=== PATIENT | male | born 1960 | race Caucasian/White ===

== ENCOUNTER 2020-01-18 08:50 | Inpatient (IN) ==
[2020-01-18 10:00] LABS: Basophils # (auto) 0.03 K/uL (0-0.2); Basophils % (auto) 0.4 %; Eosinophils # (auto) 0.05 K/uL (0-0.5); Eosinophils % (auto) 0.6 %; Hematocrit (blood only) 41.8 % (42-52); Hemoglobin 14.2 g/dL (14.0-18.0); Immature Granulocytes # (auto) 0.03 K/uL (0.00-0.02); Immature Granulocytes % (auto) 0.4 %; Lymphocytes # (auto) 1.96 K/uL (1.2-3.4); Lymphocytes % (auto) 23.6 %; Mean Corpuscular Volume 120.8 fL (80-100); Mean Platelet Volume 10.6 fL (7.4-10.4); Monocytes # (auto) 1.09 K/uL (0.11-0.59); Monocytes % (auto) 13.1 %; Neutrophils # (auto) 5.14 K/uL (1.4-6.5); Neutrophils % (auto) 61.9 %; Platelet Count 146 K/uL (130-400); RDW Coefficient of Variation 14.2 % (11.5-14.5); RDW Standard Deviation 62.5 fL (36.4-46.3); Red Blood Count 3.46 M/uL (4.7-6.1)
--- NOTE | 2020-01-18 10:03 | XRay Report ---
XR chest 1V portable CLINICAL HISTORY: Shortness of breath. COMPARISON STUDY: Chest radiograph December 11, 2012. FINDINGS: Lung volumes are diminished. There is moderate elevation of the right hemidiaphragm. Suspec mary ellen small bilateral pleural effusions are noted. Right basilar opacity is noted. Cardiac size is norm al. There is a possible hiatal hernia. There is no evidence for pulmonary edema. There is no pneumoth orax. IMPRESSION: 1. Low lung volumes with right basilar opacity that may reflect consolidation or atelectasis. Radiogr aphic follow up is recommended. 2. Suspected small bilateral pleural effusions. 3. Elevation of the right hemidiaphragm. ACT 112: Negative or not required by law. Electronically signed by: Raphael Arias M.D. 01/18/2020 10:02 AM
[2020-01-18 10:14] LABS: INR 1.7 (0.9-1.1); Partial Thromboplastin Ratio 1.2; Partial Thromboplastin Time 33.5 Seconds (21.0-31.0); Prothrombin Time 17.2 Seconds (9.0-12.0)
--- NOTE | 2020-01-18 10:22 | CT Scan Report ---
CT SCAN OF THE ABDOMEN AND PELVIS WITHOUT CONTRAST CLINICAL HISTORY: abd pain, ascites COMPARISON STUDY: 12/11/2012 TECHNIQUE: CT scan of the abdomen and pelvis was performed from the lung bases to the proximal femurs . Images are reviewed in the axial, sagittal, and coronal planes. IV contrast was not administered fo r this examination. A dose lowering technique was utilized adhering to the principles of ALARA. CT DOSE: 607.86 mGy.cm FINDINGS: Lower chest: There are bibasilar airspace opacities with air bronchograms. While likely atelectatic, a pneumonia could appear similar Liver: There is severe hepatic steatosis. No discrete masses are visualized on this noncontrast exami nation. Gallbladder: Cholelithiasis Spleen: Top normal in size Pancreas: Unremarkable. Adrenal glands: Unremarkable. Kidneys: No renal, ureteral, or bladder calculi are visualized Bowel: There are no transition zones to indicate bowel obstruction. There is colonic diverticulosis. There is no convincing evidence of acute diverticulitis. The appendix appears normal as visualized. Peritoneum: There is moderate ascites. Vasculature: The abdominal aorta is normal in course and caliber. There is prominent mesenteric and o mental vascularity. Adenopathy: None. Pelvic viscera: There is mild prostatomegaly Skeletal structures: There is a superior endplate L3 deformity which appears old IMPRESSION: 1. Severe hepatic steatosis 2. Cholelithiasis 3. Moderate ascites 4. No evidence of bowel obstruction. No evidence of free air 5. No renal, ureteral, or bladder calculi identified 6. No evidence of acute appendicitis. No evidence of acute diverticulitis 7. Bilateral lower lung zone opacities, atelectasis favored over pneumonia ACT 112: Negative or not required by law. Electronically signed by: Ashish Bolanos M.D. 01/18/2020 10:20 AM
[2020-01-18 10:25] LABS: Macrocytosis Present; Polychromasia 1+
[2020-01-18 10:30] LABS: Albumin Globulin Ratio 0.3 (0.9-2); Albumin Level 1.9 gm/dl (3.4-5.0); BUN Creatinine Ratio 7.6 (10-20); Bilirubin,Total 3.2 mg/dl (0.2-1); Calcium 8.3 mg/dl (8.5-10.1); Creatinine Clr Calc Pharmacy 104.6 ml/min; Est GFR (African American) 115.9; Globulin 6.6 gm/dl (2.5-4.0); Potassium 4.2 mmol/L (3.5-5.1); Total Protein 8.5 gm/dl (6.4-8.2)
--- NOTE | 2020-01-18 10:34 | Emergency Department Note ---
Impression & Plan Abdominal pain, Abdominal ascites, Alcoholic cirrhosis, Hyperbilirubinemia ED Provider Note NAME: MATTHEW VASUQEZ AGE: 59 SEX: M : 1960 ARRIVES VIA: Walk-In INFORMANT: Patient, ED PROVIDER(S): Jonathan Calderón DO CHIEF COMPLAINT: Abdominal pain HPI: The patient is a 59-year-old male who has a history of chronic alcoholism who continues to drink alcohol who presented to the emergency department for an evaluation of abdominal pain. The patient is noticed over the last month that he is had worsening abdominal distention. The patient does have a history of alcoholism as well as some liver insufficiency at baseline. The patient has a visiting nurse who came to see him today for his symptoms. At that time he was advised to go directly to the emergency department. They did make contact with his primary care physician. The patient's GI doctor as well as primary care physician on [place] but the patient came to [facility]. He denies having any fever or chills. He has had no recent falls. He is never had a paracentesis before. He does continue to drink alcohol. ROS: See above HPI for pertinent positives & negatives. A total of 10 systems reviewed and were otherwise negative. PAST MEDICAL HISTORY: See Below PAST SURGICAL HISTORY: See Below FAMILY HISTORY: See Below SOCIAL HISTORY: See Below HOME MEDICATIONS: See Below ALLERGIES: See Below VITALS: See Below PHYSICAL EXAMINATION: GENERAL: Patient is awake alert in no acute distress patient is resting comfortably and showing no signs of anxiety EYES: The conjunctivae are pale. The pupils are round and reactive. EARS, NOSE, MOUTH AND THROAT: The nose is without any evidence of any deformity. Mucous membranes are moist. Tongue is midline. NECK: The neck is nontender and supple. RESPIRATORY: Shallow respirations were noted. There were rales at both bases. CARDIOVASCULAR: Regular rate and rhythm noted there no murmurs rubs or gallops normal S1 normal S2. GASTROINTESTINAL: The abdomen is moderately distended and diffusely tender. There is right upper quadrant tenderness to palpation. MUSCULOSKELETAL/EXTREMITIES: There is no evidence of gross deformity full range of motion is noted in the hips and shoulders. SKIN: There is no obvious evidence of any rash. Pedal edema was noted bilater ally. NEUROLOGIC: Patient is awake alert and oriented x3. MEDICAL DECISION MAKING: The patient is a 59-year-old male who presented to the emergency department for an evaluation of abdominal pain. The patient is a history of alcoholic cirrhosis. He continues to drink alcohol. It sounds as though he has started to develop ascites recently which is worsening over the last few days. The patient is having significant difficulty breathing. I discussed the patient's laboratory and radiographic studies with him. I also discussed his case with gastroenterology. At this time they would recommend that we keep the patient in the emergency department for further work-up as well as possible paracentesis to ensure that this is not an infection in the ascites. I discussed this plan with the patient he was agreeable. I also discussed his case with the on-call [facility] hospitalist group. They have agreed to evaluate the patient in the emergency department for further management and disposition. Triage Nursing notes reviewed. Prior medical records reviewed Vital Signs: reviewed and remarkable for tachycardia. Differential diagnosis: Etiologies such as appendicitis, diverticulitis, obstruction, inflammatory bowel disease, renal colic, PUD, biliary pathology, pancreatitis, mesenteric ischemia, aortic pathology, infections, genitourinary, UTI, perforated viscus, as well as others were entertained. ER treatment provided: See below Diagnostics interpreted by me: ECG: none Cardiac Monitoring: An order was placed for continuous cardiac monitoring. The monitor shows a rate of 98 with sinus rhythm. Laboratory studies: As stated above and show below. Imaging studies: See below Consultation(s): 1130: I discussed this case with Paige who is covering for the GI group. They will evaluate the patient for further management and disposition. 1200: I discussed this case with Dr. Ramírez. She will evaluate the patient in the emergency department for further management and disposition. Past Med/Surg History Family History (Updated 01/18/20 @ 16:23 by Solitario Garg MD) Mother Ovarian cancer Father Prostate cancer Brother Cancer Brother Bladder cancer Social History (Updated 01/18/20 @ 16:20 by Solitario Garg MD) Smoking Status: Never smoker Hx Alcohol Use: Yes Alcohol Intake Frequency: 4 or More x per/Week Hx Substance Use: Yes Prescribed Medications: Marijuana Prescribed Medications Comment: 1-2 puffs a day for chronic pain Preferred Language: Mohawk Visual Impairment: No Limitations Hearing Ability: Normal Current Living Situation: Alone current occupational status: disabled How many Children do You have: 0 Feels Safe at Home: Yes Allergies Allergies Allergy/AdvReac Type Severity Reaction Status Date / Time No Known Allergies Allergy Unknown Verified 01/18/20 10:10 Home Meds Home Medications Medication Instructions Recorded Confirmed colchicine 0.5 mg PO DIRECTED 01/18/20 01/18/20 rifaximin [Xifaxan] 550 mg PO BID 01/18/20 01/18/20 Results & Data (ED) Vital Signs Vital Signs - 24 hr 01/18/20 09:10 01/18/20 09:40 01/18/20 10:24 Temperature 36.9 C Temperature Source Oral Pulse Rate 101 H 98 H Pulse Rate [Apical] 96 H Pulse Rate from SpO2 Sensor 99 H Pulse Rhythm Regular Pulse Strength Normal Respiratory Rate 22 24 26 H Respiratory Effort / Characteristics Non-Labored Spontaneous Spontaneous Short of Breath Respiratory Depth Normal Normal Respiratory Pattern Regular Regular Blood Pressure 162/100 H 137/94 Blood Pressure [Left Arm] 138/94 Blood Pressure Mean 120 105 Blood Pressure Mean [Left Arm] 108 Blood Pressure Position Sitting Blood Pressure Position [Left Arm] Lying Pulse Oximetry 93 95 95 Oxygen Delivery Method Room Air Room Air Sepsis Recent Fever Within 48 Hours No Sepsis New/Unexplained Change in Mental Status No Sepsis Action Taken by Nursing No Action Required 01/18/20 10:30 01/18/20 11:00 01/18/20 11:30 Temperature Temperature Source Pulse Rate 98 H 98 H 98 H Pulse Rate [Apical] Pulse Rate from SpO2 Sensor 99 H 98 H 99 H Pulse Rhythm Pulse Strength Respiratory Rate 22 24 20 Respiratory Effort / Characteristics Respiratory Depth Respiratory Pattern Blood Pressure 120/93 122/87 134/80 Blood Pressure [Left Arm] Blood Pressure Mean 102 106 99 Blood Pressure Mean [Left Arm] Blood Pressure Position Blood Pressure Position [Left Arm] Pulse Oximetry 95 95 94 Oxygen Delivery Method Sepsis Recent Fever Within 48 Hours Sepsis New/Unexplained Change in Mental Status Sepsis Action Taken by Nursing 01/18/20 12:00 01/18/20 12:30 01/18/20 13:00 Temperature Temperature Source Pulse Rate 98 H 95 H 98 H Pulse Rate [Apical] Pulse Rate from SpO2 Sensor 98 H 96 H 98 H Pulse Rhythm Pulse Strength Respiratory Rate 21 24 22 Respiratory Effort / Characteristics Respiratory Depth Respiratory Pattern Blood Pressure 136/96 136/85 138/88 Blood Pressure [Left Arm] Blood Pressure Mean 118 96 105 Blood Pressure Mean [Left Arm] Blood Pressure Position Blood Pressure Position [Left Arm] Pulse Oximetry 93 93 93 Oxygen Delivery Method Sepsis Recent Fever Within 48 Hours Sepsis New/Unexplained Change in Mental Status Sepsis Action Taken by Nursing 01/18/20 13:30 01/18/20 14:00 01/18/20 14:30 Temperature Temperature Source Pulse Rate 98 H 100 H 98 H Pulse Rate [Apical] Pulse Rate from SpO2 Sensor 98 H 98 H 98 H Pulse Rhythm Pulse Strength Respiratory Rate 20 21 28 H Respiratory Effort / Characteristics Respiratory Depth Respiratory Pattern Blood Pressure 133/84 117/94 137/81 Blood Pressure [Left Arm] Blood Pressure Mean 97 102 95 Blood Pressure Mean [Left Arm] Blood Pressure Position Blood Pressure Position [Left Arm] Pulse Oximetry 93 95 95 Oxygen Delivery Method Sepsis Recent Fever Within 48 Hours Sepsis New/Unexplained Change in Mental Status Sepsis Action Taken by Nursing 01/18/20 15:00 Temperature Temperature Source Pulse Rate 97 H Pulse Rate [Apical] Pulse Rate from SpO2 Sensor 97 H Pulse Rhythm Pulse Strength Respiratory Rate 24 Respiratory Effort / Characteristics Respiratory Depth Respiratory Pattern Blood Pressure 151/90 H Blood Pressure [Left Arm] Blood Pressure Mean 109 Blood Pressure Mean [Left Arm] Blood Pressure Position Blood Pressure Position [Left Arm] Pulse Oximetry 94 Oxygen Delivery Method Sepsis Recent Fever Within 48 Hours Sepsis New/Unexplained Change in Mental Status Sepsis Action Taken by Custodial Medications Current Medication List: was personally reviewed by me Laboratory Data Attestation: I reviewed the patient's lab results. Result diagrams: 01/18/20 09:45 01/18/20 09:45 Lab Results 01/18/20 01/18/20 01/18/20 Range/Units 09:45 09:45 09:45 WBC 8.30 (4.8-10.8) K/uL RBC 3.46 L (4.7-6.1) M/uL Hgb 14.2 (14.0-18.0) g/dL Hct 41.8 L (42-52) % MCV 120.8 H (80-100) fL MCH 41.0 H (25-34) pg MCHC 34.0 (32-36) g/dL RDW Std Deviation 62.5 H (36.4-46.3) fL RDW Coeff of Ty 14.2 (11.5-14.5) % Plt Count 146 (130-400) K/uL MPV 10.6 H (7.4-10.4) fL Immature Gran % (Auto) 0.4 % Neut % (Auto) 61.9 % Lymph % (Auto) 23.6 % [place] % (Auto) 13.1 % Eos % (Auto) 0.6 % Baso % (Auto) 0.4 % Neut # (Auto) 5.14 (1.4-6.5) K/uL Lymph # (Auto) 1.96 (1.2-3.4) K/uL [place] # (Auto) 1.09 H (0.11-0.59) K/uL Eos # (Auto) 0.05 (0-0.5) K/uL Baso # (Auto) 0.03 (0-0.2) K/uL Immature Gran # (Auto) 0.03 H (0.00-0.02) K/uL Polychromasia 1+ Macrocytosis Present PT 17.2 H (9.0-12.0) Seconds INR 1.7 H (0.9-1.1) APTT 33.5 H (21.0-31.0) Seconds PTT Ratio 1.2 Sodium 134 L (136-145) mmol/L Potassium 4.2 (3.5-5.1) mmol/L Chloride 101 (98-107) mmol/L Carbon Dioxide 25 (21-32) mmol/L Anion Gap 8.0 (3-11) BUN 6 L (7-18) mg/dl Creatinine 0.77 (0.6-1.4) mg/dl Est Cr Clr Drug Dosing 104.6 ml/min Est GFR ( Amer) 115.9 Est GFR (Non-Af Amer) 100.0 BUN/Creatinine Ratio 7.6 L (10-20) Glucose 102 H (70-99) mg/dl Calcium 8.3 L (8.5-10.1) mg/dl Total Bilirubin 3.2 H (0.2-1) mg/dl Direct Bilirubin (0-0.2) mg/dl AST 115 H (15-37) U/L ALT 34 (12-78) U/L Alkaline Phosphatase 131 H (45-117) U/L Total Protein 8.5 H (6.4-8.2) gm/dl Albumin 1.9 L (3.4-5.0) gm/dl Globulin 6.6 H (2.5-4.0) gm/dl Albumin/Globulin Ratio 0.3 L (0.9-2) Lipase 122 (73-393) U/L Specimen Hemolysis Imaging Data Radiologist's Impression: XR chest 1V portable CLINICAL HISTORY: Shortness of breath. COMPARISON STUDY: Chest radiograph December 11, 2012. FINDINGS: Lung volumes are diminished. There is moderate elevation of the right hemidiaphragm. Suspected small bilateral pleural effusions are noted. Right basilar opacity is noted. Cardiac size is normal. There is a possible hiatal hernia. There is no evidence for pulmonary edema. There is no pneumothorax. IMPRESSION: 1. Low lung volumes with right basilar opacity that may reflect consolidation or atelectasis. Radiographic follow up is recommended. 2. Suspected small bilateral pleural effusions. 3. Elevation of the right hemidiaphragm. ACT 112: Negative or not required by law. Electronically signed by: Raphael Arias M.D. 01/18/2020 10:02 AM Dictated: 01/18/20 1000 Transcribed: 01/18/[address] SCAN OF THE ABDOMEN AND PELVIS WITHOUT CONTRAST CLINICAL HISTORY: abd pain, ascites COMPARISON STUDY: 12/11/2012 TECHNIQUE: CT scan of the abdomen and pelvis was performed from the lung bases to the proximal femurs. Images are reviewed in the axial, sagittal, and coronal planes. IV contrast was not administered for this examination. A dose lowering technique was utilized adhering to the principles of ALARA. CT DOSE: 607.86 mGy.cm FINDINGS: Lower chest: There are bibasilar airspace opacities with air bronchograms. While likely atelectatic, a pneumonia could appear similar Liver: There is severe hepatic steatosis. No discrete masses are visualized on this noncontrast examination. Gallbladder: Cholelithiasis Spleen: Top normal in size Pancreas: Unremarkable. Adrenal glands: Unremarkable. Kidneys: No renal, ureteral, or bladder calculi are visualized Bowel: There are no transition zones to indicate bowel obstruction. There is colonic diverticulosis. There is no convincing evidence of acute diverticulitis. The appendix appears normal as visualized. Peritoneum: There is moderate ascites. Vasculature: The abdominal aorta is normal in course and caliber. There is prominent mesenteric and omental vascularity. Adenopathy: None. Pelvic viscera: There is mild prostatomegaly Skeletal structures: There is a superior endplate L3 deformity which appears old IMPRESSION: 1. Severe hepatic steatosis 2. Cholelithiasis 3. Moderate ascites 4. No evidence of bowel obstruction. No evidence of free air 5. No renal, ureteral, or bladder calculi identified 6. No evidence of acute appendicitis. No evidence of acute diverticulitis 7. Bilateral lower lung zone opacities, atelectasis favored over pneumonia ACT 112: Negative or not required by law. Electronically signed by: Ashish Bolanos M.D. 01/18/2020 10:20 AM Dictated: 01/18/20 1014 Transcribed: 01/18/20 1014 Blood Pressure Blood Pressure Findings: Normal blood pressure Discharge Plan Visit Data Chief Complaint: Abdominal Pain Stated Complaint: END STAGE LIVER DISEASE,PAIN IN ABD AND BACK ED Provider: Jonathan Calderón Discharge Problem: Abdominal pain, Abdominal ascites, Alcoholic cirrhosis, Hyperbilirubinemia Patient Disposition: Being Evaluated by Hospitalist Condition: Good Forms Stand Alone Forms: [employer] Prescriptions Prescriptions: No Action colchicine 0.6 mg tablet 0.5 mg PO DIRECTED RF: 0 Xifaxan 550 mg tablet 550 mg PO BID RF: 0 Referrals Referrals: PCP,NO [Primary Care Provider] - Discharge Problem: Abdominal pain Qualifiers: Abdominal location: right upper quadrant Qualified Code(s): R10.11 - Right upper quadrant pain Abdominal ascites Qualifiers: Ascites type: due to alcoholic cirrhosis Qualified Code(s): K70.31 - Alcoholic cirrhosis of liver with ascites Alcoholic cirrhosis Qualifiers: Ascites presence: with ascites Qualified Code(s): K70.31 - Alcoholic cirrhosis of liver with ascites
--- NOTE | 2020-01-18 14:30 | History & Physical Report ---
Date of Service January 18, 2020 Assessment & Plan (1) Abdominal ascites: Frantz Mayer is a 59 year old male w/ history of alcohol use disorder and alcoholic fatty liver (possibly cirrhosis) and a year of worsening ascites who presents with a month of increased abdominal pain and significant increase in the size of his abdomen. Abdominal Pain with ascites CT abd pelv w/o contrast showed severe hepatic steatosis, cholelithiasis, moderate ascites, no evidence of bowel obstruction, no evidence of free air -? sec to worsening ascites/SBP - spoke to radiology - to get diagnostic/therapeutic paracentesis Ascites likely secondary to alcoholic hepatosteatosis with acute alcoholic hepat itis -AST elevation and AST/ALT ratio consistent with alcoholic hapatitis -child estrada 12 points, class C. MELD score 20 -Maddrey Discriminate Function (MDF) score <32, so will not treat with glucocort icoids at this time -AM labs: CBC, CMP, PT, PTT, INR, ammonia Episodes of visual hallucinations -2 episodes of visual hallucinations in the past 2 months may point towards encephalopathy, but may also be due to other causes such as psych history (pt has had history of bipolar I and psych admission for SI in past) -hx elevated ammonia. followed by GI every 3 months. pcp every 6 months. started taking rifaximin 550 bid since 2 months ago plan: 3. alcohol use disorder with hx tremors -last drink (7 oz vodka last 2 months, pint+ a day vodka previously)) was yesterday, 16 hours ago. -At this time, no plans for use of gabapentin or Librium given that patient appears clinically mentally well. Dyspnea in setting of raised R hemidiaphragm, likely from combination of ascites and hepatomegaly, so will be cautious about sedation depressing respiratory drive. plan: -AWSS assessments -PRN Ativan per protocol. -high dose thiamine -check folate, B12 4. gout -stable, in remission plan: -hold colchicine 5. hyperlipidemia -patient has not taken medications for years -not addressed this visit 6. hx of bipolar disorder -hasn't been on medication for a few years. -not addressed acutely this visit 7. DVT prophylaxis -not using CHRISTA because of ascites plan: -SCDs Code status: full FENGI: patient had been NPO on admission because was waiting for paracentesis. Will resume diet after. No IV fluids currently because caution taken in context of ascites. Will monitor electrolytes. Dispo: med surg (2) Alcohol use disorder: (3) Alcoholic fatty liver: (4) Abdominal pain: (5) Continuous chronic alcoholism: (6) Gout: (7) Bipolar I disorder: History of Present Illness Chief Complaint: diffuse abdominal pain and ascites Primary Care Provider: Dr. Jesus Figueroa DO at [facility] Frantz Huerta is a 59 year old male w/ history of alcohol use disorder, alcoholic hepatosteatosis, acute pancreatitis, gout, bipolar I and a year of ascites who presents for worsening ascites and abdominal in the past month. 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 He reports some discomfort with breathing and inability to take deep breaths. Pain is worse on right. He reports a month of low back pain that seems to coincide with the increased ascites. It hurts to sit up and the pain is worst at night. Denies current diaphoresis. No fever, chills, chest pain, urinary symptoms, or numbness/tingling of extremities or groin. No urinary incontinence. Patient has been taking rifaximin for 2 months and reports a 3 year history of elevated ammonia levels. In the past 2 months, has had 2 episodes of visual hallucinations described as seeing bugs and weird colors. He has not taken any psychiatric medication in years. Colchicine PRN for gout is his only other prescription medication. His physicians looked into liver transplantation 2 years ago. Consideration for this was terminated because he patient was unable to obstain from alcohol. Prior to last 2 months, drank a pint+ of vodka/day. In the last 2 months, has cut down to 7oz vodka/day. Last drink was 16 hours prior to admission. In terms of alcohol withdrawal symptom history, he has experienced tremors and sweats in the past. Denies hx of kidney problems, high blood pressure, or diabetes mellitus. Allergies Allergy/AdvReac Type Severity Reaction Status Date / Time No Known Allergies Allergy Unknown Verified 01/18/20 10:10 Home Medications Home Medications Medication Instructions Recorded Confirmed Type colchicine 0.5 mg PO DIRECTED 01/18/20 01/18/20 History rifaximin [Xifaxan] 550 mg PO BID 01/18/20 01/18/20 History Past Med/Surg History Medical History (Updated 01/18/20 @ 21:01 by Solitario Garg MD) Alcoholic fatty liver (Chronic) Bipolar I disorder (Chronic) Continuous chronic alcoholism (Chronic 12/11/12) Gout (Chronic) Hyperlipidemia Family History (Updated 01/18/20 @ 16:23 by Solitario Garg MD) Mother Ovarian cancer Father Prostate cancer Brother Cancer Brother Bladder cancer Social History (Updated 01/18/20 @ 16:20 by Solitario Garg MD) Smoking Status: Never smoker Hx Alcohol Use: Yes Alcohol type: hard liquor Alcohol Intake Frequency: 4 or More x per/Week Hx Substance Use: Yes Prescribed Medications: Marijuana Prescribed Medications Comment: 1-2 puffs a day for chronic pain Last Used Substance: Days (ago) Last Used Substance Other:: 2 days ago Substance Use Type Other:: 2 hits once every 2 weeks Preferred Language: German Communication Ability: Effective Visual Impairment: No Limitations Hearing Ability: Normal Preanalytics Team Lead Required: No Beliefs That Will Affect Care: None Current Living Situation: Alone current occupational status: disabled How many Children do You have: 0 Other Information That Helps Us Care for You: No Feels Safe at Home: Yes Safety Concerns: Feels Safe At This Time Review of Systems Review of Systems: Constitutional: Denies fever, chills, weight change Eyes: Denies Vision changes ENT: Denies sore throat Cardiovascular: Denies chest pain, chest pressure, palpitations. Respiratory: Positive for shortness of breath. Denies cough Gastrointestinal: Positive for abdominal pain and diarrhea. Denies nausea, vomiting, constipation Genitourinary: Denies urinary symptoms including dysuria Musculoskeletal: Positive for back pain. Denies weakness, muscle aches/pain, joint aches/pain Neurological: Denies headache, numbness, tingling, focal weakness Physical Exam Physical Exam: General: A&Ox3. NAD. Cooperative. HEENT: PERRL, EOMI. Moist mucous membranes. Pulm: CTAB. -wheezes, -rales, -rhonchi. No respiratory distress. Cardiac: RRR, -mrg. No carotid bruits. Radial and dorsalis pedis pulses 2+ bilaterally. Abdominal: Distended. Tender to light palpation diffusely, worse on R near flank. Dull to percussion. Soft. BS present. Neurological: Cranial nerves II-XII intact. Normal heel-villarreal test bilaterally. No hand tremors. Very mild horizontal nystagmus, worse on rightward gaze. All extremities 5+/5 strength and full ROM with intact sensation. Results & Data Results & Data ([facility]) Vital Signs (Past 12 Hours) Vital Signs Temp Pulse Pulse Resp BP BP Pulse Ox 01/18/20 14:00 100 H 21 117/94 95 01/18/20 13:30 98 H 20 133/84 93 01/18/20 13:00 98 H 22 138/88 93 01/18/20 12:30 95 H 24 136/85 93 01/18/20 12:00 98 H 21 136/96 93 01/18/20 11:30 98 H 20 134/80 94 01/18/20 11:00 98 H 24 122/87 95 01/18/20 10:30 98 H 22 120/93 95 01/18/20 10:24 98 H 26 H 137/94 95 01/18/20 09:40 96 H 24 138/94 95 01/18/20 09:10 36.9 C 101 H 22 162/100 H 93 Code Status & VTE Plan Code Status Full VTE Prophylaxis Plan VTE Prophylaxis will be ordered: Yes Supervising Physician Co-Signing Physician Notes Resident Physician Supervision Note: I independently interviewed and examined the patient and verified the kilgore his tory and physical, reviewed labs and image studies, discussed the case with the resident Dr. Garg and agree with the findings and care plan. (1) Abdominal ascites Ascites type: due to alcoholic cirrhosis Qualified Code(s): K70.31 - Alcoholic cirrhosis of liver with ascites (2) Abdominal pain Abdominal location: right upper quadrant Qualified Code(s): R10.11 - Right upper quadrant pain
--- NOTE | 2020-01-18 17:02 | Ultrasound Report ---
ULTRASOUND GUIDED DIAGNOSTIC AND THERAPEUTIC PARACENTESIS CLINICAL HISTORY: ascites, SBP rule out COMPARISON STUDY: CT of the abdomen and pelvis January 18, 2020. PROCEDURE: The risks, benefits, and alternatives to the procedure were discussed with the patient inc luding the risk of bleeding, infection and injury to adjacent structures. The patient agreed to the procedure and informed written consent was obtained. Following real-time ultrasound localization, the skin of the right lower quadrant was prepped and draped. Following local anesthesia with Xylocaine, the sheath paracentesis needle was inserted and approximately 4 liters of straw-colored fluid was rem marquis by vacuum suction. The patient tolerated the procedure well and no immediate complications were evident. IMPRESSION: Ultrasound-guided paracentesis with removal of 4 liters of ascites. 1 L of ascites was s ent to the laboratory for analysis as ordered. ACT 112: Negative or not required by law. Electronically signed by: Raphael Arias M.D. 01/18/2020 5:00 PM
[2020-01-18 19:22] LABS: Albumin Peritoneal Fluid 0.6 g/dl; Total Protein Peritoneal Fluid 2.1 g/dl
[2020-01-18 19:59] LABS: Appearance Peritoneal Fluid CLEAR; Basophils, Fluid 0 %; Color Peritoneal Fluid YELLOW; Eosinophils, Fluid 0 %; Lymphocytes, Fluid 20 %; Mono,Macrophage,Mesothelial 43 %; Neutrophils, Fluid 37 %; RBC Peritoneal Fluid (A) < 3000 /uL; WBC Peritoneal Fluid (A) 300 /ul (0-300)
[2020-01-18] MEDS ORDERED: LORazepam 1 MG/2 ML VIAL IV PRN (21:18)
[2020-01-18] MEDS ORDERED: ONDANSETRON INJ 2 MG/ML 2 ML VIAL IV PRN (21:18)
[2020-01-18] MEDS ORDERED: THIAMINE HCL 500 MG in 0.9 % SODIUM CHLORIDE 100 ML IV ONE (21:45)
[2020-01-18] MEDS ORDERED: MULTI-VITAMIN INFUSION 10 ML, THIAMINE HCL 100 MG, FOLIC ACID 1 MG in SODIUM CHLORIDE 0... IV ONE (21:45)
[2020-01-18 22:16] LABS: Folate (Folic Acid) 5.38 ng/ml (>5.38)
[2020-01-18] MEDS: FOLIC ACID 1 MG TAB PO SCH (22:23)
[2020-01-18] MEDS: RIFAXIMIN 550 MG TABLET PO SCH (22:24)
[2020-01-19 06:11] LABS: Basophils # (auto) 0.04 K/uL (0-0.2); Basophils % (auto) 0.5 %; Eosinophils # (auto) 0.09 K/uL (0-0.5); Eosinophils % (auto) 1.1 %; Immature Granulocytes # (auto) 0.03 K/uL (0.00-0.02); Immature Granulocytes % (auto) 0.4 %; Lymphocytes # (auto) 2.16 K/uL (1.2-3.4); Lymphocytes % (auto) 26.5 %; Mean Corpuscular Hemoglobin 40.7 pg (25-34); Mean Corpuscular Hgb Conc 33.3 g/dL (32-36); Mean Platelet Volume 10.4 fL (7.4-10.4); Monocytes # (auto) 1.03 K/uL (0.11-0.59); Monocytes % (auto) 12.6 %; Neutrophils # (auto) 4.81 K/uL (1.4-6.5); Neutrophils % (auto) 58.9 %; Platelet Count 135 K/uL (130-400); RDW Coefficient of Variation 14.1 % (11.5-14.5); Red Blood Count 2.95 M/uL (4.7-6.1); White Blood Count 8.16 K/uL (4.8-10.8)
[2020-01-19 06:14] LABS: INR 1.8 (0.9-1.1); Partial Thromboplastin Ratio 1.3; Prothrombin Time 18.2 Seconds (9.0-12.0)
[2020-01-19 06:36] LABS: Albumin Level 1.5 gm/dl (3.4-5.0); BUN Creatinine Ratio 12.3 (10-20); Calcium 7.2 mg/dl (8.5-10.1); Creatinine Clr Calc Pharmacy 120.2 ml/min; Est GFR (African American) 122.8; Est GFR (Non-African American) 105.9; Potassium 3.8 mmol/L (3.5-5.1)
[2020-01-19 06:37] LABS: Macrocytosis Present; Polychromasia 1+
[2020-01-19 06:49] LABS: Albumin Globulin Ratio 0.3 (0.9-2); Globulin 5.2 gm/dl (2.5-4.0); Total Protein 6.7 gm/dl (6.4-8.2)
[2020-01-19] MEDS: RIFAXIMIN 550 MG TABLET PO SCH (09:49)
[2020-01-19] MEDS: FOLIC ACID 1 MG TAB PO SCH (09:49)
[2020-01-19] MEDS: THIAMINE HCL 200 MG in SODIUM CHLORIDE 0.9% 50 ML IV SCH ×2 (09:53→14:27)
--- NOTE | 2020-01-19 14:00 | Ultrasound Report ---
US duplex portal hepatic veins CLINICAL HISTORY: increasing ascites COMPARISON STUDY: CT of the abdomen and pelvis January 18, 2020. FINDINGS: Please note that a dedicated hepatic ultrasound was not performed however hepatic echogenic ity is increased. The liver is cirrhotic. A small amount of perihepatic ascites is noted. The main po rtal vein is patent with appropriately directed flow. Velocity within the main portal vein is slightl y diminished. The right and left portal veins are also patent. The middle, left and right hepatic vei ns are patent. Hepatic artery is patent. IMPRESSION: 1. Patent major hepatic vessels with appropriately directed flow. Velocity within the main portal vei n is mildly diminished. 2. Cirrhosis. Perihepatic ascites. Increased hepatic echogenicity suggestive of fatty infiltration. ACT 112: Negative or not required by law. Electronically signed by: Raphael Arias M.D. 01/19/2020 1:59 PM
--- NOTE | 2020-01-19 14:05 | Gastrointestinal Consultation ---
Date of Consultation January 19, 2020 Assessment & Plan (1) Alcoholic cirrhosis of liver with ascites: 1. We will check portal hepatic vein Doppler ultrasound to rule out PVT. 2. Discussed low-salt diet, dietary consult placed. 3. Discussed alcohol cessation. Very important that he permanently stops drinking all alcohol. He is in counseling and agrees to continue to try to stop. 4. Would defer starting diuretics, allowing his primary care provider or his regular gastroenterologists in [place] to consider. 5. Patient is stable and feels well it is reasonable that he could be discharged if no PVT. He will need close outpatient GI follow-up including HCC screening with ultrasound and AFP every 6 months, consideration for starting diuretics, continue management of cirrhosis with ascites. He may be due for EGD for screening for varices. He is due for colonoscopy according to the patient but tells me he refuses colonoscopy. He was instructed to report to the emergency department if he had sudden confusion, black or red bowel movements or vomiting blood. Present on Admission?: Yes Supervising Physician Co-Signing Physician Notes I have personally seen and examined the patient with RAVI Patton on 01/19/20. Her note reflects my exam and findings. I agree with her impression and plan. Rule out portal vein thrombosis. ETOH avoidance is kilgore to management. Nilo Gonzales M.D. History of Present Illness Reason for Consultation: Cirrhosis, ascites, abdominal pain Requesting Physician: Dr. Lr Attending Physician: Mya Lr MD History of Present Illness Mr. Frantz Huerta is a 59 yr old male pt of Dr. Jesus Figueroa DO at [facility] Frantz Huerta is a 59 year old male w/ history of alcohol use disorder, alcoholic hepatosteatosis, acute pancreatitis, gout, bipolar disease. He presented to [facility] ED yesterday for abdominal pain associated with increased ascites. He has had a small amount of ascites for few years but has not been treated with diuretics. He seems well unaware of a low-salt diet plan. About 3 weeks ago the ascites abruptly increased. He denies any fevers, chills, weakness, nausea, vomiting or confusion. He admits to continuing drinking though he has cut down. Currently drinking about 7 ounces of vodka per day. He underwent paracentesis with removal of 4 L of fluid. He feels much improved, his abdominal discomfort is nearly resolved. Fluid analysis showed 300 white blood cells but 3000 red blood cells and 30 per 7% neutrophils for an adjusted neutrophil count of 106 in the ascitic fluid (arguing against SBP). Today, he feels well and would like to go home. Allergies Allergy/AdvReac Type Severity Reaction Status Date / Time No Known Allergies Allergy Unknown Verified 01/18/20 10:10 Home Medications Home Medications Medication Instructions Recorded Confirmed Type Xifaxan 550 mg PO BID 01/18/20 01/18/20 History colchicine 0.5 mg PO DIRECTED 01/18/20 01/18/20 History Patient History Medical History (Updated 01/19/20 @ 14:02 by Paige Rowley) Alcoholic fatty liver (Chronic) Bipolar I disorder (Chronic) Continuous chronic alcoholism (Chronic 12/11/12) Gout (Chronic) Hyperlipidemia Family History (Updated 01/18/20 @ 16:23 by Solitario Garg MD) Mother Ovarian cancer Father Prostate cancer Brother Cancer Brother Bladder cancer Social History (Updated 01/18/20 @ 16:20 by Solitario Garg MD) Smoking Status: Never smoker Hx Alcohol Use: Yes Alcohol type: hard liquor Alcohol Intake Frequency: 4 or More x per/Week Hx Substance Use: Yes Prescribed Medications: Marijuana Prescribed Medications Comment: 1-2 puffs a day for chronic pain Last Used Substance: Days (ago) Last Used Substance Other:: 2 days ago Substance Use Type Other:: 2 hits once every 2 weeks Preferred Language: Wallisian Communication Ability: Effective Visual Impairment: No Limitations Hearing Ability: Normal Motion Picture Scene Builder Required: No Beliefs That Will Affect Care: None Current Living Situation: Alone current occupational status: disabled How many Children do You have: 0 Other Information That Helps Us Care for You: No Feels Safe at Home: Yes Safety Concerns: Feels Safe At This Time Review of Systems Review of Systems: ROS: Gen: Denies weakness, fevers, weight loss Eyes: No eye redness, or pain, no recent vision changes Resp: No SOB, no cough Cardio: No palpitations/irregular beats, no chest pain GI: As per HPI, otherwise negative : Denies pain on urination Skin: No jaundice, itching or new rashes Physical Exam Constitutional: WD/WN, vitals as above Eyes: PERRL, conjunctivae normal, anicteric sclerae ENMT: external ear and nose normal, oropharynx normal Neck: trachea midline, no thyromegaly Respiratory: normal respiratory effort Auscultation: + crackles (Few at each base) Cardiovascular: RRR, no murmur, no edema Gastrointestinal (Abdomen): Inspection/Auscultation: + abdomen distended (with ascites, non taunt, moderate amt); no abdominal edema Percussion/Palpation: abdomen soft; abdomen nontender and no guarding Skin: no rashes, warm and dry no jaundice Few spider angioma on the chest Neurologic: PERRL, EOMI, accommodation nl, no face palsy, no dysarthria Motor/Sensory: no tremor Psychiatric: A+Ox3, euthymic affect Lymphatic: no cervical or axillary lymphadenopathy Results & Data ([facility]) Vital Signs (Past 12 Hours) Vital Signs Temp Pulse Pulse Pulse Resp BP Pulse Ox 01/19/20 11:31 37.1 C 83 16 111/70 92 01/19/20 07:48 85 01/19/20 07:38 36.9 C 85 16 95/64 L 90 01/19/20 03:38 37.1 C 98 H 20 133/75 92 01/19/20 02:51 106 H Laboratory Results WBC 8.6, Hb 12, HCT 36, PLT 135, INR 1.8, Na 136, K3.8, BUN 8, CR 0.6 Diagnostic Findings 1. Severe hepatic steatosis 2. Cholelithiasis 3. Moderate ascites 4. No evidence of bowel obstruction. No evidence of free air 5. No renal, ureteral, or bladder calculi identified 6. No evidence of acute appendicitis. No evidence of acute diverticulitis 7. Bilateral lower lung zone opacities, atelectasis favored over pneumonia Medications Administered Folic acid, thiamine, rifaximin
--- NOTE | 2020-01-19 17:57 | Discharge Summary ---
Date of Service January 19, 2020 Admission HPI Per Admitting Provider Frantz Huerta is a 59 year old male w/ history of alcohol use disorder, alcoholic hepatosteatosis, acute pancreatitis, gout, bipolar I and a year of ascites who presents for worsening ascites and abdominal in the past month. 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 He reports some discomfort with breathing and inability to take deep breaths. Pain is worse on right. He reports a month of low back pain that seems to coincide with the increased ascites. It hurts to sit up and the pain is worst at night. Denies current d iaphoresis. No fever, chills, chest pain, urinary symptoms, or numbness/tingling of extremities or groin. No urinary incontinence. Patient has been taking rifaximin for 2 months and reports a 3 year history of elevated ammonia levels. In the past 2 months, has had 2 episodes of visual hallucinations described as seeing bugs and weird colors. He has not taken any psychiatric medication in years. Colchicine PRN for gout is his only other prescription medication. His physicians looked into liver transplantation 2 years ago. Consideration for this was terminated because he patient was unable to obstain from alcohol. Prior to last 2 months, drank a pint+ of vodka/day. In the last 2 months, has cut down to 7oz vodka/day. Last drink was 16 hours prior to admission. In terms of alcohol withdrawal symptom history, he has experienced tremors and sweats in the past. Denies hx of kidney problems, high blood pressure, or diabetes mellitus. Admission Exam Per Admitting Provider General: A&Ox3. NAD. Cooperative. HEENT: PERRL, EOMI. Moist mucous membranes. Pulm: CTAB. -wheezes, -rales, -rhonchi. No respiratory distress. Cardiac: RRR, -mrg. No carotid bruits. Radial and dorsalis pedis pulses 2+ bilaterally. Abdominal: Distended. Tender to light palpation diffusely, worse on R near flank. Dull to percussion. Soft. BS present. Neurological: Cranial nerves II-XII intact. Normal heel-villarreal test bilaterally. No hand tremors. Very mild horizontal nystagmus, worse on rightward gaze. All extremities 5+/5 strength and full ROM with intact sensation. Principal Diagnosis abdominal ascites Discharge Exam General: A&Ox3. NAD. Cooperative. HEENT: Atraumatic, normocephalic. Pulm: CTAB -wheezes, -rales, -rhonchi. Symmetrical chest rise. No respiratory distress. Cardiac: RRR, -mrg. Radial pulses intact and symmetrical. Abdominal: Soft. Mildly distended with ascites. Minimal diffuse tenderness to palpation. No guarding. Discharge Data Allergies Allergy/AdvReac Type Severity Reaction Status Date / Time No Known Allergies Allergy Unknown Verified 01/18/20 10:10 Consultations 01/18/20 11:58 ED Decision to Admit Stat 01/18/20 21:18 Consult Gastroenterology Routine Ordered Studies 01/18/20 09:30 CT abd pelvis wo con Stat 01/18/20 15:39 US paracentesis abd w/image Stat 01/19/20 13:30 US duplex portal hepatic veins Routine Hospital Course (1) Abdominal ascites: Frantz Mayer is a 59 year old male w/ history of alcohol use disorder and alcoholic fatty liver (possibly cirrhosis) and a year of worsening ascites who presents with a month of increased abdominal pain and significant increase in the size of his abdomen. To Do After Discharge: 1. routine screenings for chronic management of cirrhosis w/ ascites 2. Per GI consult recommendation: diuretics were not started during this admission, deferring consideriation to primary care provider or his regular gastroenterologists in [place]. 3. f/u alcohol cessation management Abdominal Pain with ascites In the past month, the patient's ascites worsened noticeably w/ an associated increase in abdominal pain with movement. He has hx of alcoholic hepatosteatosis and acute pancreatitis. On admission, he was not in acute distress. Through there was diffuse tenderness to light-medium palpation, he was thought to not have acute abdomen in context of lack of fever, focal pain, and no leukocytosis. CT abd pelv w/o contrast showed severe hepatic steatosis, cholelithiasis, moderate ascites, no evidence of bowel obstruction, no evidence of free air. Diagnostic/therapeutic paracentesis removed 4L and had SAAG of 0.9 and PMNs <250, less suggestive of SBP. Peritoneal gram stain was negative and culture showed no growth to date. His breathing (CXR had shown elevated R hemidiphragm), thought slightly impaired by the ascites. also improved s/p paracentesis. Portal hepatic vein US did not show thrombosis. Ascites likely secondary to alcoholic hepatosteatosis with acute alcoholic hepatitis AST elevation and AST/ALT ratio were consistent with alcoholic hepatitis. His Child Boswell was 12 points, class C. MELD score was 20. Maddrey Discriminate Function (MDF) score <32, so he was not treated with glucocorticoids. Coags were elevated at PT 17.2 INR 1.7 APTT 33.5 and ammonia was elevated at 46. Home rifaximin was continued. No confusion during this admission. Episodes of visual hallucinations He reports 2 episodes of visual hallucinations in the past 2 months; may point towards encephalopathy. The patient has hx of elevated ammonia and started taking rifaximin 550 BID since 2 months ago. He is followed by GI every 3 months and PCP every 6 months. Alcohol use disorder with hx tremors His last drink 16 hours prior to admission. AWSS assessments were consistently 0. PRN Ativan per protocol and was not needed. High dose thiamine administered. B12 and folate were not low. Had discussion with patient about importance of alcohol cessation. Patient expressed preparation stage of change and that he would follow up with his PCP and counselor about quitting alcohol use. Gout -stable, in remission -held home colchicine Hyperlipidemia -patient has not taken medications for years -not addressed this visit hx of bipolar disorder -hasn't been on medication for a few years. -not addressed acutely this visit DVT prophylaxis -SCDs were used. (2) Alcohol use disorder: (3) Alcoholic fatty liver: (4) Abdominal pain: (5) Continuous chronic alcoholism: (6) Gout: (7) Bipolar I disorder: Total Time Total Time Spent Total Time Spent (In Minutes): Please refer to attending documentation. 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 At the hospital, a CT scan of your abdomen showed severe fatty liver and fluid. Labwork showed mildly elevated liver enzymes, increased clotting labs, elevated ammonia levels. A procedure was done by the radiologists to remove 4 liters of fluid. The fluid from your belly was sent to the lab to be cultured and so far it has not grown any bacteria. The fluid content was clear yellow and the specific cell levels do not suggest infection. Your hepatitis C test was also negative. The GI doctor at the hospital also examined you and an ultrasound of your abdomen was done. It did not show any obstruction, but showed liver cirrhosis. You have not been prescribed any new medications. Continue your home rifaximin and as needed colchicine. Please make a followup appointment with your primary care doctor, Dr. Jesus Figueroa at [facility] to be seen in a week. We discussed your drinking habits prior to discharge. It is very important to work towards quitting alcohol because your liver is already severely damaged. If you develop any new or worsening symptoms including fever, chills, sweats, chest pain, chest pressure, difficulty breathing, uncontrolled nausea/vomiting, rash, wheezing, passing out or nearly passing out, bleeding, black/bloody stools, or other new or concerning symptoms, please call you primary care doctor, or call 911 to be seen in the emergency department if you are very concerned. Pending Studies at Discharge: Yes Studies:: peritoneal fluid cultures Stand-Alone Forms: My [facility], Smoking Cessation Medications and DC Order Prescriptions: Continued colchicine 0.6 mg tablet 0.5 mg PO DIRECTED RF: 0 Xifaxan 550 mg tablet 550 mg PO BID RF: 0 Discharge Orders: Discharge Order (Routine); Ordered 01/19/20 Ordered By: Solitario Martínez/Other Patient Handouts: Treating Cirrhosis, Alcoholism Resources, Alcoholism: Getting Help, Alcohol Addiction Admission Data Admit Date/Time: 01/18/20 15:39 Attending Provider: Mya Lr Admit Provider: Solitario Garg Primary Care Provider: PCP,NO Other Providers: Stephanie Ramírez ; Nilo Gonzales Other Interventions: Discharge Summary Assessment (RN) Last Done: 01/19/20 18:09 DC Date/Time DO NOT enter until pt leaves facility: 01/19/20 18:41 Supervising Physician Co-Signing Physician Notes Resident Physician Supervision Note: I independently interviewed and examined the patient and verified the kilgore history and physical, reviewed labs and image studies, discussed the case with the resident Dr. Garg and agree with the findings and care plan. Resident Activity Tracking Resident Involvement: Resident Care Provided Care Provided: Adult Hospital Medicine
[2020-01-20] MEDS ORDERED: THIAMINE HCL 100 MG in SYRINGE 9 ML IV SCH (09:00)
== END 2020-01-19 18:41 | disposition home or self-care (01) | DRG 434 ==
LOC: ED 08:50 → 2N 15:39